=== PATIENT | male | born 1960 | race Hispanic/Latino ===

== ENCOUNTER 2019-12-06 12:46 | Emergency (ER) | payer SELFPAY ==
[2019-12-06] MEDS ORDERED: ASPIRIN 325 MG TAB PO ONE (14:04)
--- NOTE | 2019-12-06 14:05 | Event Note ---
ED Screening Note Date of service: 12/06/19 Time: 14:01 ED Screening Note: 59 y.o. M. that presents to the ER with chest pain for 3 days. Reports chest pain on left side. Reports SOB with exertion. Current cigarette smoker This initial assessment/diagnostic orders/clinical plan/treatment(s) is/are subject to change based on patients health status, clinical progression and re- assessment by fellow clinical providers in the ED. Further treatment and workup at subsequent clinical providers discretion. Patient/guardian urged not to elope from the ED as their condition may be serious if not clinically assessed and managed. Initial orders include: Chest pain protocol
--- NOTE | 2019-12-06 14:47 | XRay Report ---
CHEST 1 VIEW 2:30 PM INDICATION / CLINICAL INFORMATION: Chest pain for 6 months. COMPARISON: None available. FINDINGS: SUPPORT DEVICES: None. HEART / MEDIASTINUM: The heart size and pulmonary vasculature are normal. The aorta is normal in lilliam [place]. LUNGS / PLEURA: There is very mild patchy parenchymal disease in the left lung base with slight blunt ing of the left lateral costophrenic angle. The right lung is clear. No pneumothorax. ADDITIONAL FINDINGS: There are surgical changes in the lower cervical spine. IMPRESSION: Very mild left basilar subsegmental atelectasis or subsegmental pneumonia. Signer Name: Johnson Julian MD Signed: 12/06/2019 2:42 PM Workstation Name: [id number]
[2019-12-06 15:05] LABS: Basophils % (Auto) 0.4 % (0.0-1.8); Eosinophils % (Auto) 0.1 % (0.0-4.3); Hematocrit 38.2 % (35.5-45.6); Hemoglobin 12.9 gm/dl (11.8-15.2); Lymphocytes # (Auto) 0.7 K/mm3 (1.2-5.4); Lymphocytes % (Auto) 7.8 % (13.4-35.0); Mean Corpuscular HGB Conc 34 % (32-34); Mean Corpuscular Volume 90 fl (84-94); Monocytes # (Auto) 0.7 K/mm3 (0.0-0.8); Platelet Count 238 K/mm3 (140-440); Red Blood Count 4.22 M/mm3 (3.65-5.03); Red Cell Distribution Width 14.4 % (13.2-15.2)
[2019-12-06 15:27] LABS: BUN/Creatinine Ratio 19; Blood Urea Nitrogen 17 mg/dL (9-20); Calcium 9.1 mg/dL (8.4-10.2); Hemolysis Index 4
--- NOTE | 2019-12-06 16:08 | Emergency Department Report ---
ED General Adult HPI - General Chief complaint: Chest Pain Stated complaint: FEET SWELLING/CHEST PAIN/DEHYRATED Time Seen by Provider: 12/06/19 14:01 Source: patient, RN notes reviewed Mode of arrival: Ambulatory Limitations: No Limitations - History of Present Illness Initial comments: This is a 59-year-old gentleman. He is not known to myself previously. He has a history of tobacco use. He recently took a bus here from [place]. He reports that the drive was over 3 days. He presents to the ER with a few days of left-sided chest wall pain, that moved to the anterior chest, positive cough, mucus production and shortness of breath. No fever, no vomiting, no diaphoresis, to me he denies swelling to legs and feet. He is a smoker. He is motivated to discontinue tobacco consumption. No recent aspirin consumption that he is aware of. He is not sure of exacerbating or relieving factors for his symptoms. -: Gradual, days(s) Location: chest Radiation: other Severity scale (0 -10): 10 Quality: aching Consistency: other Improves with: other Worsens with: other Associated Symptoms: other - Related Data Previous Rx's Medication Instructions Recorded Last Taken Type Albuterol Sulfate [Proair 90 mcg IH Q4HR PRN #2 aer.pow.ba 12/06/19 Unknown Rx Respiclick] Nicotine Polacrilex [Nicotine Gum] 4 mg BC QDAY #30 gum 12/06/19 Unknown Rx levoFLOXacin [Levaquin] 750 mg PO QDAY #6 tablet 12/06/19 Unknown Rx Allergies Allergy/AdvReac Type Severity Reaction Status Date / Time Penicillins AdvReac Swelling Verified 12/06/19 13:08 ED Review of Systems ROS: Stated complaint: FEET SWELLING/CHEST PAIN/DEHYRATED Other details as noted in HPI Constitutional: malaise. denies: fever Eyes: denies: eye discharge ENT: congestion Respiratory: cough, shortness of breath Cardiovascular: chest pain Gastrointestinal: denies: nausea, vomiting Genitourinary: as per HPI Musculoskeletal: as per HPI Skin: as per HPI Neurological: as per HPI Psychiatric: as per HPI Hematological/Lymphatic: as per HPI ED Past Medical Hx - Past Medical History Previous Medical History?: No - Surgical History Past Surgical History?: Yes - Social History Smoking Status: Never Smoker Substance Use Type: None - Medications Home Medications: Home Medications Medication Instructions Recorded Confirmed Last Taken Type Albuterol Sulfate [Proair 90 mcg IH Q4HR PRN #2 aer.pow.ba 12/06/19 Unknown Rx Respiclick] Nicotine Polacrilex [Nicotine Gum] 4 mg BC QDAY #30 gum 12/06/19 Unknown Rx levoFLOXacin [Levaquin] 750 mg PO QDAY #6 tablet 12/06/19 Unknown Rx ED Physical Exam - General Limitations: No Limitations General appearance: alert, in no apparent distress - Head Head exam: Present: atraumatic, normocephalic - Eye Eye exam: Present: normal appearance, EOMI. Absent: nystagmus - ENT ENT exam: Present: normal exam, normal orophraynx, mucous membranes moist, normal external ear exam - Neck Neck exam: Present: normal inspection, full ROM. Absent: tenderness, meningismus - Respiratory Respiratory exam: Present: normal lung sounds bilaterally, decreased breath sounds. Absent: respiratory distress, wheezes, rales, rhonchi, stridor - Cardiovascular Cardiovascular Exam: Present: regular rate, normal rhythm, normal heart sounds. Absent: bradycardia, tachycardia, irregular rhythm, systolic murmur, diastolic murmur, rubs, gallop - GI/Abdominal GI/Abdominal exam: Present: soft, normal bowel sounds. Absent: distended, tenderness, guarding, rebound, rigid, pulsatile mass - Rectal Rectal exam: Present: deferred - Extremities Exam Extremities exam: Present: normal inspection, full ROM, other (2+ pulses noted in the bilateral upper and lower extremities. There is no palpable cord. negative Homans sign. Muscular compartments are soft. The pelvis is stable.). Absent: pedal edema, calf tenderness - Back Exam Back exam: Present: normal inspection, full ROM. Absent: tenderness, CVA tenderness (R), CVA tenderness (L), paraspinal tenderness, vertebral tenderness - Neurological Exam Neurological exam: Present: alert, other (There is no facial droop. The tongue is midline. Extraocular movements are intact bilaterally. There is 5 out of 5 strength in bilateral upper and lower extremities. Sensation is intact to light touch bilateral upper and lower extremities. ). Absent: motor sensory deficit - Psychiatric Psychiatric exam: Present: anxious - Skin Skin exam: Present: warm, dry, intact, normal color. Absent: rash ED Course Vital Signs 12/06/19 12/06/19 12/06/19 13:01 13:08 16:14 Temperature 98.0 F 98 F Pulse Rate 93 H 90 Respiratory 20 16 Rate Blood Pressure 111/67 Blood Pressure 111/67 [Right] O2 Sat by Pulse 95 95 99 Oximetry 12/06/19 12/06/19 12/06/19 16:16 16:30 16:45 Temperature Pulse Rate 66 64 Respiratory 26 H 14 Rate Blood Pressure 133/69 Blood Pressure 133/69 [Right] O2 Sat by Pulse 98 98 98 Oximetry 12/06/19 12/06/19 12/06/19 17:01 17:15 17:30 Temperature Pulse Rate 68 78 75 Respiratory 16 15 15 Rate Blood Pressure 134/70 116/54 125/65 Blood Pressure [Right] O2 Sat by Pulse 100 100 97 Oximetry 12/06/19 12/06/19 12/06/19 17:45 18:00 18:15 Temperature Pulse Rate 71 70 89 Respiratory 20 16 14 Rate Blood Pressure 113/57 104/54 104/54 Blood Pressure [Right] O2 Sat by Pulse 100 99 97 Oximetry 12/06/19 12/06/19 18:52 18:56 Temperature Pulse Rate 81 Respiratory 17 18 Rate Blood Pressure Blood Pressure 113/65 [Right] O2 Sat by Pulse 100 Oximetry - Reevaluation(s) Reevaluation #1: 12/06/19 18:01 Differential diagnosis, including but not limited to: Pulmonary embolism, pneumonia, acute coronary syndrome, GERD, gastritis, hiatal hernia, bronchitis Assessment and plan: 59-year-old gentleman with with left-sided infra-thoracic pain after recent extended road trip from [place]. He is currently afebrile with reassuring vital signs. He is not currently tachycardic, tachypneic or hypoxic. He is low pretest probability for pulmonary embolism, however, given his recent extensive trip from [place], d-dimer sent, and is elevated, and a CT scan of the chest will be obtained. Troponin negative x1, EKG unchanged x2, patient is at low risk for major adverse cardiac event as per the heart score. He describes days of pain. Clinically I suspect that pneumonia is the most likely diagnosis, in which case, the patient is medically suitable for trial of oral outpatient antibiotic management. He will be given fluids, nonnarcotic pain medication, levofloxacin, and albuterol. We will reassess after troponin #2, and CT scan of the chest have resulted. Reevaluation #2: 12/06/19 19:[address] scan of the chest confirms pneumonia, no pulmonary embolism is identified. EKG is unchanged x2. Vital signs remained stable. Patient resting comfortably in stretcher, and in no acute distress. Patient is medically suitable for trial of oral outpatient antibiotic management. He will also be given a an affordable prescription card. ED Medical Decision Making - Lab Data Result diagrams: 12/06/19 14:35 12/06/19 14:35 Vital Signs - 24 hr 12/06/19 13:08 Temperature 98 F Pulse Rate 90 Respiratory 16 Rate Blood Pressure 111/67 [Right] O2 Sat by Pulse 95 Oximetry Lab Results 12/06/19 12/06/19 Range/Units 14:35 14:35 WBC 9.2 (4.5-11.0) K/mm3 RBC 4.22 (3.65-5.03) M/mm3 Hgb 12.9 (11.8-15.2) gm/dl Hct 38.2 (35.5-45.6) % MCV 90 (84-94) fl MCH 31 (28-32) pg MCHC 34 (32-34) % RDW 14.4 (13.2-15.2) % Plt Count 238 (140-440) K/mm3 Lymph % (Auto) 7.8 L (13.4-35.0) % Bates % (Auto) 8.0 H (0.0-7.3) % Eos % (Auto) 0.1 (0.0-4.3) % Baso % (Auto) 0.4 (0.0-1.8) % Lymph # 0.7 L (1.2-5.4) K/mm3 Bates # 0.7 (0.0-0.8) K/mm3 Eos # 0.0 (0.0-0.4) K/mm3 Baso # 0.0 (0.0-0.1) K/mm3 Seg Neutrophils % 83.7 H (40.0-70.0) % Seg Neutrophils # 7.7 (1.8-7.7) K/mm3 Sodium 139 (137-145) mmol/L Potassium 4.5 (3.6-5.0) mmol/L Chloride 99.7 (98-107) mmol/L Carbon Dioxide 22 (22-30) mmol/L Anion Gap 22 mmol/L BUN 17 (9-20) mg/dL Creatinine 0.9 (0.8-1.5) mg/dL Estimated GFR > 60 ml/min BUN/Creatinine Ratio 19 % Glucose 87 (75-100) mg/dL Calcium 9.1 (8.4-10.2) mg/dL Troponin T < 0.010 (0.00-0.029) ng/mL - EKG Data -: EKG Interpreted by Ri EKG shows normal: sinus rhythm Rate: normal - EKG Data 12/06/19 17:51 EKG #1 shows a sinus rhythm, 85 bpm, normal axis, QTC 440 ms, there is left ventricular hypertrophy, there is motion artifact The first EKG is not consistent with a STEMI. A second EKG is basically unchanged from prior. It is also not consistent with a STEMI. There is no prior EKG available for comparison. 12/06/19 18:00 - Radiology Data Radiology results: report reviewed, image reviewed Print Report Referring Physician: ESEQUIEL SONI Patient Name: LUPIS VALENCIA Date of : 1960 Sex: Male Report Date: 2019-12-06 Report Status: Finalized Findings [facility] [address] [place] [address] XRay Report Signed Patient: LUPIS VALENCIA MR#: [id number] 113 : 1960 Acct:[id number] Age/Sex: 59 / M ADM Date: 12/06/19 Loc: ED Attending Dr: Ordering Physician: BERNARD HYLTON Date of Service: 12/06/19 Procedure(s): XR chest 1V ap Accession Number(s): [id number] cc: BERNARD HYLTON Fluoro Time In Minutes: CHEST 1 VIEW 2:30 PM INDICATION / CLINICAL INFORMATION: Chest pain for 6 months. COMPARISON: None available. FINDINGS: SUPPORT DEVICES: None. HEART / MEDIASTINUM: The heart size and pulmonary vasculature are normal. The aorta is normal in caliber. LUNGS / PLEURA: There is very mild patchy parenchymal disease in the left lung base with slight blunting of the left lateral costophrenic angle. The right lung is clear. No pneumothorax. ADDITIONAL FINDINGS: There are surgical changes in the lower cervical spine. IMPRESSION: Very mild left basilar subsegmental atelectasis or subsegmental pneumonia. Signer Name: Johnson Julian MD Signed: 12/06/2019 2:42 PM Workstation Name: [id number] Transcribed By: RT Dictated By: Johnson Julian MD Electronically Authenticated By: Johnson Julian MD Signed Date/Time: 12/06/19 1442 DD/ 1438 Print Report Referring Physician: ANH HULL Patient Name: LUPIS VALENCIA Date of : 1960 Sex: Male Report Date: 2019-12-06 Report Status: Finalized Findings [facility] [address] [place] [address] Cat Scan Report Signed Patient: LUPIS VALENCIA MR#: [id number] 113 : 1960 Acct:[id number] Age/Sex: 59 / M ADM Date: 12/06/19 Loc: ED Attending Dr: Ordering Physician: ANH HULL MD Date of Service: 12/06/19 Procedure(s): CT angio chest Accession Number(s): [id number] cc: ANH HULL MD CT angio chest INDICATION: MAIN: left sided cp, sob + d dimer, recent trip from [place] OMNIPAQUE 350 100ML. TECHNIQUE: All CT scans at this location are performed using CT dose reduction for ALARA by means of automated exposure control. Precontrast localizer images were obtained, followed by axial and 3-dimensional reconstruction images, performed at an independent workstation by the agricultural research technologist after IV bolus contrast injection. COMPARISON: None available. FINDINGS: Mediastinum, jose and axillae are negative. No pleural fluid. Bibasilar parenchymal disease. Left basilar disease appears to represent bronc hopneumonia. Right basilar disease may be simply ate lectasis. No evidence of pulmonary embolus. IMPRESSION: 1. Findings suggest bronchopneumonia of the left lower lobe. 2. Negative for pulmonary embolus. Signer Name: Mars Sauer MD Signed: 12/06/2019 7:11 PM Workstation Name: [id number] Transcribed By: TM Dictated By: Mars Sauer MD Electronically Authenticated By: Mars Sauer MD Signed Date/Time: 12/06/191910 DD/ 06 Critical care attestation.: If time is entered above; I have spent that time in minutes in the direct care of this critically ill patient, excluding procedure time. ED Disposition Clinical Impression: Pneumonia Qualifiers: Pneumonia type: due to unspecified organism Laterality: left Lung location: lower lobe of lung Qualified Code(s): J18.9 - Pneumonia, unspecified organism Disposition: DC- TO HOME OR SELFCARE Is pt being admited?: No Does the pt Need Aspirin: No Condition: Stable Additional Instructions: Recommend that patient discontinue tobacco consumption. Drink 4 to 6 cups of water per day indefinitely. Patient may take [id number] Tylenol, 650 mg by mouth, every 4-6 hours as needed for pain, alternating with ibuprofen, 400 mg by mouth with food, every 6 hours as needed for pain. Use the albuterol medication as needed for cough, Levaquin antibiotic as directed, and use the nicotine patches as directed for tobacco cessation. Avoid consumption of alcohol while taking the medications. Follow-up with a primary care doctor within the next 7 days. Please return to the emergency room right away with new, worsened or different symptoms, or symptoms not present on the initial emergency room evaluation. Patient may use the attached affordable prescription card to obtain affordable prescriptions. He may also download the good Rx application on his smart phone device and use as instructed to find affordable prescriptions. Referrals: MARI RAMIREZ MD [Primary Care Provider] - 3-5 Days NAYELY BYRNE MD [Staff Physician] - 3-5 Days [facility] [Provider Group] - 3-5 Days [facility] [Provider Group] - 3-5 Days
[2019-12-06] MEDS ORDERED: IBUPROFEN 400 MG TAB PO ONE (16:14)
[2019-12-06] MEDS ORDERED: ALBUTEROL 2.5 MG/3 ML NEBU IH ONE (16:14)
[2019-12-06] MEDS ORDERED: ACETAMINOPHEN 325 MG TAB PO ONE (16:14)
[2019-12-06] MEDS ORDERED: SODIUM CHLORIDE 0.9% 500 ML 500 ML IV ONE (16:14)
[2019-12-06] MEDS ORDERED: ASPIRIN 325 MG TAB ONE (16:55)
[2019-12-06 16:56] LABS: INR 1.13 (0.87-1.13)
[2019-12-06] MEDS ORDERED: ONDANSETRON 4 MG/2 ML INJ IV ONE (18:39)
[2019-12-06] MEDS ORDERED: ONDANSETRON 4 MG/2 ML INJ ONE (18:41)
--- NOTE | 2019-12-06 19:16 | Cat Scan Report ---
CT angio chest INDICATION: MAIN: left sided cp, sob + d dimer, recent trip from [place] OMNIPAQUE 350 100ML. TECHNIQUE: All CT scans at this location are performed using CT dose reduction for ALARA by means of automated e xposure control. Precontrast localizer images were obtained, followed by axial and 3-dimensional reconstruction images , performed at an independent workstation by the hematology technologist after IV bolus contrast injection. COMPARISON: None available. FINDINGS: Mediastinum, jose and axillae are negative. No pleural fluid. Bibasilar parenchymal disease. Left bas ilar disease appears to represent bronchopneumonia. Right basilar disease may be simply atelectasis. No evidence of pulmonary embolus. IMPRESSION: 1. Findings suggest bronchopneumonia of the left lower lobe. 2. Negative for pulmonary embolus. Signer Name: Mars Sauer MD Signed: 12/06/2019 7:11 PM Workstation Name: [id number]
[2019-12-06 21:46] VITALS: BP 107/52
== END 2019-12-06 21:00 | disposition home or self-care (01) ==
LOC: ED 12:46
DX: J18.9 Pneumonia, unspecified organism (principal)
CPT/HCPCS: 36415; 71045; 71275; 80048; 82550; 83735; 84484; 85025; 85379; 85610; 93005; 93010; 96365; 96375; 99284; J1956; J2405; J7040; Q9967